=== PATIENT | female | born 1935 | race Caucasian/White ===

== ENCOUNTER 2016-10-01 07:11 | Emergency (ER) | payer MEDICARE, MEDICAID ==
[2016-10-01 07:24] VITALS: TEMP 98.9; BMI 37.7
--- NOTE | 2016-10-01 07:49 | EDPRACDOC ---
- General Information Chief Complaint: Female Urogenital Problems Stated Complaint: BLADDER PAIN Time Seen by Provider: 10/01/16 07:38 Information Source: Patient, [facility] Mode Of Arrival: Ambulance Home Medications: Home Medications Ascorbic Acid [Vitamin C] 1,000 mg PO DAILY 01/27/16 Baclofen 10 mg PO QID 01/27/16 Calcium Carbonate/Vitamin D3 [Calcium 600 + Vit D 200 Tablet] 1 tab PO BID 01/26 Celecoxib (anti-inflammatory) [Celebrex] 200 mg PO BID 01/27/16 Ergocalciferol (Vitamin D2) [Vitamin D] 1 cap PO DAILY 01/27/16 Furosemide 1 tab PO DAILY 01/27/16 Multivitamin [Multivitamins] 1 cap PO DAILY 01/27/16 Aurora-3 Acid Ethyl Esters [Lovaza] 2 cap PO BID 01/27/16 Omeprazole 40 mg PO DAILY 01/27/16 Oxycodone HCl [Oxycodone Immediate Release] 7.5 mg PO Q6 PRN 01/27/16 Vitamin B Complex 1 tab PO DAILY 01/27/16 Cranberry Extract [Cranberry] 250 mg PO DAILY 03/29/16 Cyclosporine [Restasis (0.05%)] 1 drop OU BID 03/29/16 Docusate Sodium [Colace] 100 mg PO BID 03/29/16 Psyllium Husk [Metamucil] 6 cap PO HS 03/29/16 Acetaminophen Ex Str Tablet [TYLENOL EXTRA STRENGTH Tablet] 1,000 mg PO Q4H PRN 05/25/16 Aspirin/Calcium Carbonate/Mag [Aspirin Buffered 325 mg Tab] 325 mg PO DIR PRN 05/25/16 Calcium Carbonate [Antacid Ultra Strength] 1,177 mg PO Q4H PRN 05/25/16 Estradiol [Estrace] 0.1 mg PV MOWEFR 05/25/16 Guaifenesin [Q-Tussin] 10 ml PO Q6H PRN 05/25/16 Hydrocortisone/Aloe Vera [Hydrocortisone-Aloe 0.5% Cream] 1 gm TOP Q6H PRN 05/25 Levothyroxine [Synthroid, Levoxyl] 25 mcg PO MOFR 05/25/16 Loperamide HCl [Loperamide] 2 mg PO QID PRN 05/25/16 Lorazepam [Ativan] 1 mg PO TID PRN 05/25/16 Magnesium Hydroxide [Milk of Magnesia] 30 ml PO DAILY PRN 05/25/16 Magnesium Hydroxide/Al Hydrox [Mylanta Liquid] 30 ml PO QID PRN 05/25/16 Neomy Sulf/Bacitrac Zn/Poly [Neosporin Antibiotic Ointment] 2 gm TOP Q12H PRN Nitrofurantoin Monohyd/M-Cryst [Macrobid 100 mg Capsule] 100 mg PO DAILY Oxycodone HCl [Oxycodone Immediate Release] 7.5 mg PO BID PRN 05/25/16 Phenazopyridine [Pyridium] 100 mg PO Q8H PRN 05/25/16 Phenyleph/Mineral Oil/Petrolat [Preparation H Ointment] 2 gm RC Q4H PRN Proanthocyandin And Oligomeric Powder 1.5 tsp PO DAILY 05/25/16 Nitrofurantoin [Macrobid] 100 mg PO BID #10 cap 10/01/16 Allergies/Adverse Reactions: Allergies Allergy/AdvReac Type Severity Reaction Status Date / Time No Known Allergies Allergy Verified 10/01/16 07:24 - History of Present Illness Medications/Treatment [facility] Treatment BLS IV No HPI: PT WITH H/O PROLAPSED UTERUS. NOTICED BLEEDING FROM THE AREA TODAY AND A ROUGH SPOT THAT HADN'T BEEN THERE BEFORE. NOTICED BLOOD AFTER SHE HAD URINATED. NO DYSURIA. BUT IT DOES TAKE A LONG TIME TO URINATE. (PRESENT FOR YEARS). SEES UROLOGY DR LANDAVERDE. Onset: SEVERAL MONTHS - Treatment Prior to ED Arrival Reported Medications/Treatment [facility] Treatment BLS IV No ED Past Medical History - History Reviewed Yes Nurses notes reviewed and agree except as marked - Patient Medical History Cardiac History: Reports: Hypertension GI/ History: Reports: Urinary Tract Infection (chronic), Gastroesophageal Reflux, Ulcer (gastric) Musculoskeletal History: Reports: Arthritis (osteoarthritis) Psychological History: Denies: Depression Systemic History: Reports: Hyperthyroidism - Family Medical History Reports: Hypertension, Diabetes (son), Cardiac Disorders. Denies: Cancer - Social Medical History Smoking Status: Former smoker EDM Review of Systems - Review of Systems ROS Negative Except as Marked: Yes All systems reviewed and were negative except as marked Mouth: No Symptoms Reported Respiratory: No Symptoms Reported Cardiovascular: No Symptoms Reported Neurological: No Symptoms Reported Musculoskeletal: No Symptoms Reported - Physical Exam Constitutional: Alert (Awake), No apparent distress Oriented to: Time, Person, Place Last recorded Vital Signs: Last Vital Signs Temp 98.9 F 10/01/16 07:15 Pulse 61 10/01/16 07:15 Resp 18 10/01/16 07:15 BP 162/74 10/01/16 07:15 Pulse Ox 95 10/01/16 07:15 Oxygen Pulse Oxygen Saturation 95 O2 Device Oxygen Flow Rate Fraction of Inspired Oxygen ( FIO2) - HEENT Head: Normal ( normocephalic) Eye Exam: Normal (PERRL, EOMI, Sclera white) Oropharynx: Normal (Pharynx:Moist without exudate,Gums-no swelling) Nose: No Symptoms Reported (septum midline) Neck: Normal (FROM, trachea at midline) - Respiratory/Cardiovascular Respiratory: Normal - CTA (BBS clear to auscultation without adventitious sounds ) Cardiovascular: Normal (RRR without murmur, gallop or rub) - GI Auscultation: Normal (NABS) Palpation: Normal (Soft,No rebound or guarding, non distended) Tenderness: Non tender Ludwig's Sign: Negative - External: Other (UTERINE PROLAPSE; NO BLEEDING.) - Musculoskeletal Back: Normal (Non-Tender) Extremities: Normal (Normal tone, Pulses 2+ No cyanosis or edema, FROM) - Integumentary Skin: Normal, Warm, Dry Lymphatics: Normal (no adenopathy) - Neurologic Memory Impaired: Normal Motor Function: Normal (Normal tone, Pulses 2+ No cyanosis or edema, FROM) Cranial Nerve: Normal (CN II-X11 intact sensation, strength 5/5) Cerebellar: Normal Mood Description: Normal Perception: Normal Decision Time to Discharge: 09:17 - Departure Yes I personally saw and evaluated the patient. Disposition: Home Condition: Stable Final Diagnosis: UTI (urinary tract infection) Qualifiers: Urinary tract infection type: acute cystitis Hematuria presence: with hematuria Qualified Code(s): N30.01 - Acute cystitis with hematuria Instructions: Urinary Tract Infection in Women (ED), Dysuria Education/Counseling Given To: Patient Education/Counseling Given Regarding: Diagnosis, Treatment Referrals: Yesenia Costello MD [Primary Care Provider] - One Week Prescriptions: Nitrofurantoin [Macrobid] 100 mg PO BID #10 cap
[2016-10-01 08:20] LABS: WBC/URINE TNTC (0-5)
[2016-10-01 08:34] LABS: LEUKOCYTES/URINE 2+ (NEGATIVE); NITRITE/URINE NEG (NEGATIVE); URINE OCCULT BLOOD 2+ (NEG/TRACE)
[2016-10-01] MEDS ORDERED: NITROFURANTOIN 100 MG CAP PO ONE (09:16)
[2016-10-01 10:19] VITALS: BP 149/71; PULSE 75
== END 2016-10-01 10:30 | disposition short-term general hospital (02) ==
LOC: ED 07:11
DX: N30.01 Acute cystitis with hematuria (principal)
CPT/HCPCS: 81001; 87077; 87086; 87186; 99283; A9270; J3490